=== PATIENT | female | born 1975 | race Caucasian/White ===

== ENCOUNTER 2022-02-21 22:09 | Emergency (ER) | payer BC, MEDICAID ==
[~2022-02-21] VITALS: Ht 157.5 cm; Wt 63.9 kg
[2022-02-21 23:00] VITALS: BP 147/93
[2022-02-22] MEDS ORDERED: MAGNESIUM/ALUMINUM HYDROXIDE/SIMETHICONE 30ML UDC PO STA (01:22)
[2022-02-22] MEDS ORDERED: DICYCLOMINE 10 MG/5 ML ORAL SYR PO STA (01:22)
[2022-02-22] MEDS ORDERED: ONDANSETRON 4MG ODT PO STA (01:22)
[2022-02-22 01:51] LABS: HEMOGLOBIN. 16.1 g/dL (12.0-16.0); MEAN CORPUSCULAR HEMOGLOBIN 29.2 pg (28.0-32.0); MEAN CORPUSCULAR VOLUME 87.3 fL (81.0-99.0); MEAN PLATELET VOLUME 9.1 fl (7.4-10.4); PLATELET 239 x1000/uL (130-400); RED CELL DISTRIBUTION WIDTH 13.7 % (11.6-14.6)
[2022-02-22 02:01] LABS: CHLORIDE 104 mEq/L (98-107)
[2022-02-22 02:15] LABS: HCG SCREEN NEGATIVE
[2022-02-22 02:59] LABS: PLATELET ESTIMATE NORMAL
[2022-02-22] MEDS ORDERED: MAGNESIUM/ALUMINUM HYDROXIDE/SIMETHICONE 30ML UDC PO NR (05:00)
[2022-02-22] MEDS ORDERED: ONDANSETRON 4MG ODT PO NR (05:00)
[2022-02-22] MEDS ORDERED: DICYCLOMINE 10 MG/5 ML ORAL SYR PO NR (05:00)
== END 2022-02-22 01:50 | disposition home or self-care (01) ==
LOC: ER 22:09
DX: K52.9 Noninfective gastroenteritis and colitis, unspecified (principal)
CPT/HCPCS: 36415; 80053; 83690; 84703; 85025; 99283; Q0162